=== PATIENT | male | born 1995 ===

== ENCOUNTER 2019-05-26 21:10 | Emergency (ER) | payer SELFPAY ==
[~2019-05-26 21:10] MED LIST: Iopamidol-370 76% 500 ML 1 ML ONE
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
== END 2019-05-26 22:56 ==
LOC: ERS 21:10
DX: M54.5 Low back pain (principal); V89.2XXA Person injured in unspecified motor-vehicle accident, traffic, initial encounter
CPT/HCPCS: 71260; 74177; Q9967

== ENCOUNTER 2022-03-31 20:57 | Emergency (ER) | payer SELFPAY | END 2022-03-31 21:20 | LOC: ERS 20:57 | DX: F10.129 Alcohol abuse with intoxication, unspecified (principal); F12.10 Cannabis abuse, uncomplicated | CPT/HCPCS: 99283 ==